=== PATIENT | male | born 1960 | race Caucasian/White ===

== ENCOUNTER 2018-01-06 09:34 | Day surgery (SDC) | payer MEDICAID ==
[~2018-01-06 09:34] MED LIST: Lactated Ringers 1,000 ML IV SCH
[2018-01-06] MEDS: Lactated Ringers 1,000 ML IV SCH (10:03)
[2018-01-06] MEDS ORDERED: Midazolam 1 MG/ML 2 ML SDV ONE ×2 (10:13→11:43)
[2018-01-06] MEDS ORDERED: fentaNYL 100 MCG/2 ML SDV ONE ×2 (10:13→11:43)
[2018-01-06] MEDS ORDERED: Propofol 200 MG/20 ML SDV ONE ×2 (10:13→11:43)
[2018-01-06 14:11] VITALS: BP 129/91
--- NOTE | 2018-01-06 14:42 | OR ---
DATE OF PROCEDURE: 01/06/2018 PREOPERATIVE DIAGNOSIS: Colon cancer screening. POSTOPERATIVE DIAGNOSES: Diverticulosis, incomplete colonoscopy to about 70 cm. PROCEDURE PERFORMED: Colonoscopy to about 70 cm. SURGEON: Ramirez Ozuna MD ANESTHESIA: IV anesthesia with monitored anesthesia care. INDICATION: This 57-year-old white male is referred for a colonoscopy for colon cancer screening. He has never had a colonoscopic exam. I counseled him for the procedure, including risks and alternatives, and he gave his informed consent to proceed. DESCRIPTION OF PROCEDURE: The patient was placed in the left lateral decubitus position. IV anesthesia was administered by the Anesthesia Service. Time-out was held. A rectal exam was performed, which was unremarkable. The flexible video Olympus colonoscope was introduced through his anus, up his rectum and out his colon. We were able to get to about 70 cm, when we were unable to go any higher. We encountered smooth mucosa, but we could not get the scope to go above this area. The attempts included with abdominal compression, which provided no benefit. The scope was then slowly withdrawn, examining the distal colon and rectum. No mucosal abnormalities were noted, except for a few scattered left-sided diverticula. There was no bleeding or inflammation associated with them. The scope was retroflexed in the rectum with the distal rectum showing some hemorrhoidal tissue, but otherwise unremarkable. The scope was straightened and removed. He tolerated the procedure well. We will get a barium enema. I spoke with the radiologist about this. Ramirez Ozuna MD /[id number]
--- NOTE | 2018-01-06 15:32 | CR ---
Barium Enema Comp CLINICAL HISTORY: Incomplete colonoscopy FINDINGS: There is retrograde flow of thin barium to the rectosigmoid colon. There is some intermitte nt spasticity. Patient in a few scattered colonic diverticula. At the distal descending: There is a s egment of rather persistent narrowing. There was some variability in diameter. This may represent rocío e persistent spasm or possibly stricture formation. Annular constricting mucosal lesion is felt less likely. Colon proximal to this had a normal mucosal pattern and configuration. The transverse colon i s moderately redundant. There is reflux into a normal appearing terminal ileum IMPRESSION: Relatively smooth segmental narrowing of the distal portion of the descending colon. This most likely represents some persistent spasm or possibly some stricture formation. An annular mucosa l lesion is less likely. Mild diverticulosis without evidence of diverticulitis
== END 2018-01-06 13:00 | disposition home or self-care (01) ==
LOC: JP.SDS 09:34
PROVIDERS: ATTEND Surgery
DX: Z12.11 Encounter for screening for malignant neoplasm of colon (principal); K57.30 Diverticulosis of large intestine without perforation or abscess without bleeding; K64.9 Unspecified hemorrhoids; F17.200 Nicotine dependence, unspecified, uncomplicated
CPT/HCPCS: 45330; 74270; J2250; J2704; J3010; J7120